=== PATIENT | female | born 1990 | race African-American/Black ===

== ENCOUNTER 2020-08-25 10:13 | Emergency (ER) | payer OTHER ==
[2020-08-25 10:20] VITALS: BP 116/73
[2020-08-25 10:47] LABS: Basophils % (Auto) 0.4 % (0.0-1.8); Eosinophils # (Auto) 0.2 K/mm3 (0.0-0.4); Eosinophils % (Auto) 1.8 % (0.0-4.3); Lymphocytes # (Auto) 1.8 K/mm3 (1.2-5.4); Lymphocytes % (Auto) 19.4 % (13.4-35.0); Mean Corpuscular HGB Conc 36 % (30-34); Mean Corpuscular Volume 95 fl (79-97); Monocytes # (Auto) 0.5 K/mm3 (0.0-0.8); Monocytes % (Auto) 5.5 % (0.0-7.3); Platelet Count 214 K/mm3 (140-440); Red Blood Count 3.78 M/mm3 (3.65-5.03); Red Cell Distribution Width 12.7 % (13.2-15.2)
[2020-08-25 10:50] LABS: Bilirubin,Urine NEG (Negative); Blood,Urine SM (Negative); Color,Urine Yellow (Yellow); Mucus,Urine FEW /HPF; Protein,Urine <15 mg/dL mg/dL (Negative); Urobilinogen,Urine < 2.0 mg/dL (<2.0); WBC,Urine < 1.0 /HPF (0.0-6.0)
[2020-08-25 10:52] LABS: Hematocrit 35.7 % (30.3-42.9); Hemoglobin 12.9 gm/dl (10.1-14.3)
[2020-08-25 11:09] LABS: Alanine Aminotransferase 13 units/L (7-56); Blood Urea Nitrogen 10 mg/dL (7-17); Calcium 8.9 mg/dL (8.4-10.2); Hemolysis Index 10
[2020-08-25 11:23] LABS: BUN/Creatinine Ratio 20
--- NOTE | 2020-08-25 13:48 | Emergency Department Report ---
ED Female HPI - General Chief complaint: Abdominal Pain Stated complaint: 7WKS PREG ABDOMINAL PAIN/BLEEDING Time Seen by Provider: 08/25/20 13:18 Source: patient Mode of arrival: Ambulatory Limitations: No Limitations - History of Present Illness Initial comments: 30-year-old [place] female presents to the emergency room stating that she is 7 weeks and started having bleeding last night when she urinated. Patient states she had bleeding last week that had stopped and last night she had blood when she urinated. Today she reports some brown discharge. She does admit to just a little tenderness to her pelvic area. She is followed by [facility]. This is her first last menstrual period was 07/02/2020. She denies any nausea vomiting chest pain shortness of breath palpitations or fever chills. MD Complaint: vaginal bleeding, pelvic pain -: Last night Location: suprapubic Radiation: non-radiating Severity scale (0 -10): 1 Quality: cramping Consistency: intermittent Improves with: none Are you Now?: Yes Last Menstrual Period: 07/02/20 EDC: 04/08/21 Associated Symptoms: vaginal bleeding, abdominal pain. denies: nausea/vomiting, fever/chills - Related Data Sexually active: Yes : 1 Allergies Allergy/AdvReac Type Severity Reaction Status Date / Time No Known Allergies Allergy Unverified 08/25/20 10:20 ED Review of Systems ROS: Stated complaint: 7WKS PREG ABDOMINAL PAIN/BLEEDING Other details as noted in HPI Comment: All other systems reviewed and negative ED Past Medical Hx - Past Medical History Previous Medical History?: No - Surgical History Past Surgical History?: No - Social History Smoking Status: Never Smoker Substance Use Type: None ED Physical Exam - General Limitations: No Limitations General appearance: alert - Head Head exam: Present: atraumatic - Eye Eye exam: Present: normal appearance - ENT ENT exam: Present: mucous membranes moist - Respiratory Respiratory exam: Present: normal lung sounds bilaterally - Cardiovascular Cardiovascular Exam: Present: tachycardia - GI/Abdominal GI/Abdominal exam: Present: soft. Absent: distended, tenderness - Neurological Exam Neurological exam: Present: alert, oriented X3, normal gait - Psychiatric Psychiatric exam: Present: normal affect, normal mood - Skin Skin exam: Present: warm, dry, intact, normal color. Absent: rash ED Course Vital Signs 08/25/20 10:15 Temperature 98.1 F Pulse Rate 98 H Respiratory 18 Rate Blood Pressure 116/73 O2 Sat by Pulse 100 Oximetry ED Medical Decision Making - Lab Data Result diagrams: 08/25/20 10:32 08/25/20 10:32 - Radiology Data Radiology results: report reviewed Ordering Physician: VITA CABALLERO Date of Service: 08/25/20 Procedure(s): US OB <= 14 weeks fetus Accession Number(s): [id number] cc: VITA CABALLERO ULTRASOUND OBSTETRIC INDICATION / CLINICAL INFORMATION: Vaginal bleeding with pelvic cramping. Clinical Gestational Age (GA): 7.5 weeks.days TECHNIQUE: Transabdominal. COMPARISON: None available. FINDINGS: GESTATIONAL SAC: Well-defined oval shape and intrauterine in location. YOLK SAC: No significant abnormality. EMBRYO/FETUS: No significant abnormality. - [place]-Rump Length = 0.11 cm = 7.2 weeks.days - Heart Rate, beats per minute (if present) = 154 UTERUS: The uterus measures 10.1 x 6.6 x 7.6 cm. ADNEXA: No significant abnormality. The right ovary measures 3.4 x 2.2 x 4.3 cm and the left ovary measures 4.4 x 2.5 x 3.2 cm FREE FLUID: None. ADDITIONAL FINDINGS: None. IMPRESSION: 1. Single, living intrauterine with estimated sonographic age of 7.3 weeks.days. heart rate is 154 bpm. Signer Name: Albert Jorge MD Signed: 08/25/2020 3:37 PM Workstation Name: [id number] Transcribed By: Dictated By: ALBERT JORGE Electronically Authenticated By: ALBERT JORGE Signed Date/Time: 08/25/20 1537 DD/ 1531 TD/TT: - Medical Decision Making 30-year-old [place] female presents to the emergency room stating that she is 7 weeks and started having bleeding last night when she urinated. Patient states she had bleeding last week that had stopped and last night she had blood when she urinated. Today she reports some brown discharge. She does admit to just a little tenderness to her pelvic area. [facility] This is her first last menstrual period was 07/02/2020. She denies any nausea vomiting chest pain shortness of breath palpitations or fever chills. Ultrasound shows 7-week 3-day fetus with no abnormality heartbeat 154. Have patient follow-up with her [facility]. Critical care attestation.: If time is entered above; I have spent that time in minutes in the direct care of this critically ill patient, excluding procedure time. ED Disposition Clinical Impression: Threatened miscarriage in early Qualifiers: Weeks of gestation: less than 8 weeks Qualified Code(s): Z3A.01 - Less than 8 weeks gestation of Disposition: DC-01 TO HOME OR SELFCARE Is pt being admited?: No Does the pt Need Aspirin: No Condition: Stable Instructions: Abdominal Pain (ED) Additional Instructions: Ultrasound shows you have a 7-week 3-day intrauterine gestation. I would like for you to be on pelvic rest which means no heavy lifting exercise and vigorous sex. You need to follow-up with your [facility] first thing next week. You can only take Tylenol for pain continue with your vitamins. Return back to the emergency room for reevaluation if you start to have severe pelvic pain heavy bleeding. Referrals: [facility] [Provider Group] - 3-5 Days Forms: Work/School Release Form(ED)
--- NOTE | 2020-08-25 15:42 | Ultrasound Report ---
ULTRASOUND OBSTETRIC INDICATION / CLINICAL INFORMATION: Vaginal bleeding with pelvic cramping. Clinical Gestational Age (GA): 7.5 weeks.days TECHNIQUE: Transabdominal. COMPARISON: None available. FINDINGS: GESTATIONAL SAC: Well-defined oval shape and intrauterine in location. YOLK SAC: No significant abnormality. EMBRYO/FETUS: No significant abnormality. - [place]-Rump Length = 0.11 cm = 7.2 weeks.days - Heart Rate, beats per minute (if present) = 154 UTERUS: The uterus measures 10.1 x 6.6 x 7.6 cm. ADNEXA: No significant abnormality. The right ovary measures 3.4 x 2.2 x 4.3 cm and the left ovary me asures 4.4 x 2.5 x 3.2 cm FREE FLUID: None. ADDITIONAL FINDINGS: None. IMPRESSION: 1. Single, living intrauterine with estimated sonographic age of 7.3 weeks.days. hea rt rate is 154 bpm. Signer Name: Dmitry Jorge MD Signed: 08/25/2020 3:37 PM Workstation Name: [id number]
== END 2020-08-25 16:19 | disposition home or self-care (01) ==
LOC: ED 10:13
DX: O20.0 Threatened abortion (principal); Z3A.01 Less than 8 weeks gestation of pregnancy
CPT/HCPCS: 36415; 76801; 80053; 81001; 84702; 85025